=== PATIENT | female | born 1965 | race Caucasian/White ===

== ENCOUNTER 2017-10-22 10:05 | Emergency (ER) | payer MEDICAID ==
[~2017-10-22] VITALS: Wt 67.1 kg
[2017-10-22] MEDS ORDERED: SOD CHLORIDE 0.9% 500 ML IV STA (10:56)
[2017-10-22] MEDS ORDERED: KETOROLAC 15 MG INJ IV STA (10:56)
[2017-10-22] MEDS ORDERED: ALPRAZOLAM 1 MG TAB PO ONE (11:00)
--- NOTE | 2017-10-22 11:37 | ERD ---
ER Documentation Chief Complaint Chief Complaint htn, sob, intermittent chest disconfort HPI 51-year-old woman here for evaluation for uncontrolled hypertension, she states she has been using her antihypertensives as prescribed but today her diastolic went above 100 mmHg. During this episode she had chest pain and dizziness. She states she has been having chest pain intermittently daily 1 week associated with palpitations. She has had similar episodes of chest pain in the past, the pain is sharp, nonexertional, nonradiating. She had no slurred speech today, no weakness in her arms or legs, no vomiting, no loss of consciousness. ROS All systems reviewed and are negative except as per history of present illness. Medications Home Meds Reported Medications Hydrochlorothiazide* (Hydrochlorothiazide*) 25 Mg Tab, 25 MG PO DAILY, #30 TAB 10/22/17 Losartan Potassium* (Losartan Potassium*) 50 Mg Tablet, 50 MG PO DAILY, TAB 10/22/17 Allergies Allergies: Coded Allergies: captopril (Verified Allergy, Unknown, 10/22/17) PMhx/Soc Hypertension FmHx Family History: No diabetes Physical Exam Vitals Vital Signs Date Time Temp Pulse Resp B/P Pulse Ox O2 Delivery O2 Flow Rate FiO2 10/22/17 13:03 98.0 63 18 135/66 99 Room Air 10/22/17 10:11 98.6 77 18 174/89 99 Physical Exam GENERAL: Well-developed, well-nourished, well-hydrated, in no apparent distress , looks nontoxic in appearance HEENT: Moist mucous membranes, pink conjunctiva, no cervical spine tenderness or step-off deformities, no goiter, no jaundice or icterus, extraocular movements intact without pain. No submandibular induration, and no pharyngeal erythema NEURO: Alert and oriented 3, cranial nerves II through XII intact bilaterally, pupils equal round reactive to light, no focal deficits or facial asymmetry, sensation intact distally Strength 5/5 in upper and lower extremities bilaterally CARDIAC: Regular rate and rhythm, no murmurs rubs or gallops LUNGS: Clear bilaterally no wheezing crackles or stridor ABDOMEN: Soft nontender, no guarding, no rigidity, no rebound, no psoas sign no obturator sign. Normoactive bowel sounds SKIN: Warm and dry to touch, no abrasions, contusions, or hematomas, no lacerations, no ecchymosis, no target lesions, and without ulcers EXTREMITIES: No clubbing cyanosis or edema, calves are bilaterally symmetrical, no Homans sign, no popliteal cord sign. Distal pulses equal and bilateral PSYCH: Appears anxious Result Diagram: 10/22/17 1125 10/22/17 1125 Results 24 hrs Laboratory Tests Test 10/22/17 11:25 White Blood Count 10.210^3/ul Red Blood Count 4.8210^6/ul Hemoglobin 12.5g/dl Hematocrit 38.7% Mean Corpuscular Volume 80.3fl Mean Corpuscular Hemoglobin 25.9pg Mean Corpuscular Hemoglobin Concent 32.3g/dl Red Cell Distribution Width 16.6% Platelet Count 11730^3/UL Mean Platelet Volume 9.6fl Neutrophils % 64.5% Lymphocytes % 22.5% Monocytes % 10.4% Eosinophils % 1.4% Basophils % 0.5% Nucleated Red Blood Cells % 0.0/100WBC Neutrophils # 6.610^3/ul Lymphocytes # 2.310^3/ul Monocytes # 1.110^3/ul Eosinophils # 0.110^3/ul Basophils # 0.110^3/ul Nucleated Red Blood Cells # 0.010^3/ul Sodium Level 141mmol/L Potassium Level 3.7mmol/L Chloride Level 99mmol/L Carbon Dioxide Level 26mmol/L Anion Gap 20 Blood Urea Nitrogen 15mg/dl Creatinine 0.64mg/dl Glucose Level 100mg/dl Calcium Level 9.9mg/dl Total Bilirubin 0.4mg/dl Direct Bilirubin 0.00mg/dl Indirect Bilirubin 0.4mg/dl Aspartate Amino Transf (AST/SGOT) 30IU/L Alanine Aminotransferase (ALT/SGPT) 31IU/L Alkaline Phosphatase 89IU/L Troponin I < 0.012ng/ml Total Protein 9.2g/dl Albumin 4.9g/dl Globulin 4.30g/dl Albumin/Globulin Ratio 1.13 Lipase 63U/L Current Medications Medications (Trade) Dose Ordered Sig/Nicole Route PRN Reason Start Time Stop Time Status Last Admin Dose Admin Sodium Chloride (NS) 500 ml @ 500 mls/hr Q1H STAT IV 10/22/17 10:56 10/22/17 11:55 DC 10/22/17 11:27 Ketorolac Tromethamine (Toradol) 15 mg ONCE STAT IV 10/22/17 10:56 10/22/17 10:58 DC 10/22/17 11:29 Alprazolam (Xanax) 1 mg ONCE ONCE PO 10/22/17 11:00 10/22/17 11:01 DC 10/22/17 11:29 Clonidine (Catapres) 0.1 mg ONCE ONCE PO 10/22/17 12:00 10/22/17 12:07 DC Procedures/MDM IV line was established 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 Patient was afebrile I administered 100 cc normal saline IV 1, clonidine 0.1 mg p.o. for hypertension and alprazolam 1 mg p.o. for anxiety. EKG performed, read by me: 73 bpm, normal sinus rhythm, normal axis, no acute ST segment changes, narrow QRS complex, with good R-wave progression in precordial leads. Blood pressure responded nicely to medications, patient is asymptomatic at this time and feels well. She has no complaints of chest pain or shortness of breath , and her dizziness completely resolved. CBC and electrolytes were normal, liver function tests were normal, troponin was negative Differential diagnoses considered, included but not limited to acute coronary syndrome, pulmonary embolism, aortic dissection, abdominal aortic aneurysm, sepsis, stroke, meningitis, encephalitis, pneumonia, appendicitis, cholecystitis , bowel obstruction, pyelonephritis, nephrolithiasis, cystitis, as well as metabolic, hematologic, and electrolyte abnormalities. As well as abscess, cellulitis, fractures, and dislocations. Patient feels much better at this time, and vital signs are normal, symptoms have improved. I did give strict instructions to return to the ED if symptoms continue or worsen, patient will otherwise follow-up with primary care physician. Patient understood instructions and agreed to plan. Disclaimer: Inadvertent spelling and grammatical errors are likely due to EHR/ dictation software use and do not reflect on the overall quality of patient care. Also, please note that the electronic time recorded on this note does not necessarily reflect the actual time of the patient encounter. Departure Diagnosis: Primary Impression: Hypertension Hypertension type: essential hypertension Qualified Code: I10 - Essential hypertension Condition: Good NABEEL CASAS MD Oct 22, 2017 11:37
[2017-10-22 11:59] LABS: BASOPHIL # 0.1 10^3/ul (0.0-0.1); BASOPHILS % 0.5 % (0.0-2.0); EOSINOPHILS # 0.1 10^3/ul (0.0-0.5); EOSINOPHILS % 1.4 % (0.0-7.0); HEMATOCRIT 38.7 % (37.0-47.0); HEMOGLOBIN 12.5 g/dl (12.0-16.0); LYMPHOCYTES # 2.3 10^3/ul (0.8-2.9); LYMPHOCYTES % 22.5 % (15.0-51.0); MEAN CORPUSCULAR HEMOGLOBIN 25.9 pg (29.0-33.0); MEAN CORPUSCULAR HGB CONC 32.3 g/dl (32.0-37.0); MEAN CORPUSCULAR VOLUME 80.3 fl (82.0-101.0); MEAN PLATELET VOLUME 9.6 fl (7.4-10.4); MONOCYTE # 1.1 10^3/ul (0.3-0.9); MONOCYTES % 10.4 % (0.0-11.0); NEUTROPHIL # 6.6 10^3/ul (1.6-7.5); NEUTROPHILS % 64.5 % (39.0-77.0); PLATELET COUNT 349 10^3/UL (140-415); RED BLOOD COUNT 4.82 10^6/ul (4.20-5.40); RED CELL DISTRIBUTION WIDTH 16.6 % (11.5-14.5); WHITE BLOOD COUNT 10.2 10^3/ul (4.8-10.8)
[2017-10-22] MEDS ORDERED: LOSA50TA6 PO (12:22)
[2017-10-22] MEDS ORDERED: HYDR25TA6 PO (12:22)
[2017-10-22 13:01] LABS: ALANINE AMINOTRANSFERASE 31 IU/L (13-69); ALBUMIN 4.9 g/dl (3.3-4.9); ALBUMIN/GLOBULIN RATIO 1.13; ALKALINE PHOSPHATASE 89 IU/L (42-121); ANION GAP 20 (8-16); ASPARTATE AMINO TRANSFERASE 30 IU/L (15-46); BILIRUBIN,INDIRECT 0.4 mg/dl (0-1.1); BILIRUBIN,TOTAL 0.4 mg/dl (0.2-1.3); BLOOD UREA NITROGEN 15 mg/dl (7-20); CALCIUM 9.9 mg/dl (8.4-10.2); CARBON DIOXIDE 26 mmol/L (21-31); CHLORIDE 99 mmol/L (97-110); CREATININE 0.64 mg/dl (0.44-1.00); GLUCOSE 100 mg/dl (70-220); POTASSIUM 3.7 mmol/L (3.5-5.1); SODIUM 141 mmol/L (135-144); TOTAL PROTEIN 9.2 g/dl (6.1-8.1)
[2017-10-22 13:03] VITALS: BP 135/66; PULSE 63; RESP 18; TEMP 98
[2017-10-22 13:18] LABS: TROPONIN-I < 0.012 ng/ml (0.00-0.12)
== END 2017-10-22 14:12 | disposition home or self-care (01) ==
LOC: E/R 10:05
DX: I10 Essential (primary) hypertension (principal)
CPT/HCPCS: 36415; 80053; 83690; 84484; 85025; 93005; 96374; J1885; J7040; Z7502; Z7610

== ENCOUNTER 2018-03-02 16:58 | Emergency (ER) | END 2018-03-02 21:08 | disposition home or self-care (01) ==